=== PATIENT | male | born 2000 | race Caucasian/White ===

== ENCOUNTER 2020-10-19 17:27 | Emergency (ER) | payer OTHER, BC, SELFPAY ==
--- NOTE | ~2020-10-19 | XR_ITS ---
EXAMINATION: XR foot LT min 3V DATE: 10/19/2020 17:41 INDICATION: Left foot pain and bruising after being run over by a pallet calin TECHNIQUE: Dorsoplantar, two oblique and lateral views of the left foot were obtained. COMPARISON: None. FINDINGS: Bone alignment is normal. Linear lucency projecting across the tuft of the left fifth distal phalanx on the dorsal plantar and one of the oblique views but without definitive cortical continuity and thi s remains equivocal for small nondisplaced fracture. No other lesions suspicious for fracture. Joint spaces are normal. Soft tissues are unremarkable. IMPRESSION: 1. Linear lucency suspicious but not definitive for nondisplaced fracture at the tuft of the left fif th distal phalanx. Reviewed, dictated and finalized at location A. TE [employer]ITER IMPRESSION: 1. Linear lucency suspicious but not definitive for nondisplaced fracture at th e tuft of the left fifth distal phalanx.
--- NOTE | 2020-10-19 17:35 | ED.LOWEXIN ---
HPI - Extremity Injury (Lower) General Chief Complaint: Extremity Injury, Lower Stated Complaint: INJURED L TOE Time Seen by Provider: 10/19/20 17:36 Source: patient and RN notes reviewed Mode of arrival: ambulatory Limitations: no limitations History of Present Illness HPI Narrative: 20 year old male who presents to express care with complaints of pain to his left 5th toe since approximately 1999 last night when he accidently ran over his toe using a hand held pallet calin. Patient has swelling and discoloration to his left 5th toe with noted avulsion of skin on inner side of 5th left toe with no acute bleeding noted. Patient has strong left pedal pulse present, foot warm to touch with patient stating increase in pain with movement, palpation of toe, and weight bearing to his left foot MD complaint: foot injury Onset (ago): hour(s) (last night at work) Injury: Left: foot Type of Injury: other (rolled over foot with pallet calin at work last night) Place: work Severity scale (1-10): 5 Relieving factors: nothing Exacerbating factors: movement and palpation Context: direct blow Associated symptoms: able to partially bear weight Other symptoms: none Related Data Allergies Allergy/AdvReac Type Severity Reaction Status Date / Time No Known Allergies Allergy Unverified 05/30/14 19:55 Review of Systems Review of Systems: Narrative: CONSTITUTIONAL: Denies fever, chills, or sweats. EYES: Denies visual changes, redness, or discharge. ENT: Denies rhinorrhea, congestion, sore throat, or otalgia. CARDIOVASCULAR: Denies chest pain, palpitations, or edema. RESPIRATORY: Denies cough or dyspnea. GASTROINTESTINAL: Denies abdominal pain, nausea, vomiting, or diarrhea. GENITOURINARY: Denies dysuria or hematuria. SKIN: Denies rash or itching..25cm avulsion of skin on inner aspect of left 5th toe no active bleeding MUSCULOSKELETAL: Denies back pain,positive for pain to 5th left toe with swelling and discoloration, or myalgia. NEUROLOGIC: Denies headache, numbness, or weakness. PSYCHIATRIC: Denies anxiety or depression. All systems reviewed & are unremarkable except as noted in HPI and below PMFSH Past Medical History Medical History (Updated 10/21/20 @ 08:53 by Gisele Love NP) Depression Surgical History Surgical History (Updated 10/19/20 @ 17:39 by Gisele Love NP) H/O eye surgery Social History Social History (Updated 10/19/20 @ 17:39 by Gisele Love NP) Smoking status: Never smoker Alcohol intake: never Substance use: never Living arrangements: with family Gender identity (if verbalized by the patient): Male Comments At time of signature, agree with nursing past medical, surgical, social and family history. There is no relevant family history pertinent to the presenting complaint Exam Narrative: Exam Narrative: GENERAL: Well-appearing, well-nourished, and in no acute distress. HEAD: Normocephalic, atraumatic. EYES: PERRLA and EOMI. ENT: Nares clear, no rhinorrhea or epistaxis. Mucous membranes moist.TM's normal with good light reflex, throat pink with no lesions or exudates, no tonsil enlargement or redness. NECK: Supple.no lymphadenopathy CHEST: Clear to auscultation. No respiratory distress.SAO2 100% on room air HEART: Regular rate and rhythm. No murmur heard. Normal peripheral pulses. ABDOMEN: Soft, nontender, nondistended, normal active bowel sounds. EXTREMITIES: Normal range of motion. No edema with exception to left 5th toe which has some swelling bruising and pain, left foot has strong pedal and posterior tibial pulses, foot warm and pink, denies any tingling or numbness to his left foot or toes. SKIN: Warm, dry, no rash. 0.25 cm avulsion of skin to inner aspect of left 5th toe, bruising noted at nail bed of 5th left toe no subungual hematoma noted NEURO: No focal deficits. Alert and oriented x3. Course Vital Signs Vital signs: Vital Signs Temperature 36.5 C 10/19/20 17:42 Pulse Rate 63
[2020-10-19 17:42] VITALS: BP 129/82; PULSE 63; RESP 16; TEMP 36.5; O2SAT 100
== END 2020-10-19 18:10 | disposition home or self-care (01) ==
PROVIDERS: Emergency Provider Registered Nurse
DX: S90.122A Contusion of left lesser toe(s) without damage to nail, initial encounter (principal); X58.XXXA Exposure to other specified factors, initial encounter; S91.105A Unspecified open wound of left lesser toe(s) without damage to nail, initial encounter; S92.535A Nondisplaced fracture of distal phalanx of left lesser toe(s), initial encounter for closed fracture
CPT/HCPCS: 73630; 99203; G0463

== ENCOUNTER 2022-01-03 13:32 | Emergency (ER) | payer OTHER, SELFPAY ==
--- NOTE | 2022-01-03 13:41 | ED.URI ---
HPI - URI/Sore Throat General Chief Complaint: Upper Respiratory Infection Stated Complaint: congestion, runny nose, cough Time Seen by Provider: 01/03/22 13:41 Source: patient Mode of arrival: ambulatory Limitations: no limitations History of Present Illness HPI Narrative: Mr. Sen is a 21-year-old male patient presenting to the clinic today with complaints of cough, congestion, and runny nose X1 week. He reports is having green/yellow nasal discharge as well as sinus pressure. Has been getting sinus headaches from this. Feels as though the drainage is running down the back of his throat causing a little bit of a sore throat as well as a cough. He denies any fever or chills. He denies any known exposure to anyone with COVID, flu, or strep. MD elicited complaint: cough, rhinorrhea and nasal congestion Related Data Allergies Allergy/AdvReac Type Severity Reaction Status Date / Time No Known Allergies Allergy Verified 01/03/22 13:40 Review of Systems Review of Systems: Pertinent positives per HPI. Patient denies any fever, chills, rash, headache, visual changes, dizziness, shortness of breath, chest pain, palpitations, nausea, vomiting, diarrhea, constipation, abdominal pain, or any urinary issues. PMFSH Past Medical History Medical History Depression Surgical History Surgical History H/O eye surgery Social History Social History Smoking status: Never smoker Alcohol intake: never Substance use: never Gender identity (if verbalized by the patient): Male Comments At the time of my signature, I reviewed and agree with the nursing past medical, surgical, social, and family history. There is no relevant family history pertinent to the patient complaint. Exam Narrative: General: Well-developed, well nourished, in no apparent distress Head: Normocephalic, atraumatic Eyes: Pupils equally round and reactive to light bilaterally, EOM intact, sclera and conjunctive clear, no discharge, lids normal Ears: TMs intact and clear, ear canals ceruminous, no drainage, grossly hearing normal. Nose: Nares patent, green nasal discharge, moderate inflammation with white striae over the anterior and posterior nasal turbinates, sinus tenderness over the maxillary and frontal sinuses. Mouth: Oral pharynx without lesions or masses, good dentition, MMM. Oropharynx red, postnasal drip Neck: Supple, trachea midline, no enlargement of anterior or posterior cervical nodes, no thyroid masses or goiter palpable. Cardio: Regular rate and rhythm, s1 and s2 normal, no murmur appreciated. Resp: Clear to auscultation bilaterally, no rhonchi, rales, wheezing or rubs Course Course Emergency Course: Portions of this record may have been created with voice recognition software. Level of Care: Express Care Visit Vital Signs Vital signs: Vital signs reviewed MDM - URI/Sore Throat MDM Narrative Medical decision making narrative: At the time of arrival patient is resting comfortably on the exam table. He reports cough, nasal congestion, sinus headache, and runny nose x1 week. Has been taking [id number] Tylenol without relief. I suspect he has acute bacterial rhinosinusitis and will treat with a course of Augmentin. Supportive measures were discussed with patient he voiced understanding of discharge instructions. Differential Diagnosis Differential diagnosis: Likely upper respiratory infection, croup, otitis media, sinusitis, viral infection, bronchitis, influenza and pharyngitis Discharge Plan Discharge Clinical Impression: Acute bacterial rhinosinusitis Patient Disposition: Home, Self-Care Condition: Stable Instructions: Antibiotic Form, Rhinosinusitis (ED) Additional Instructions: Take prescription medications only as prescribed-Aug
[2022-01-03 13:42] VITALS: BP 126/77; PULSE 127; RESP 16; TEMP 36.6; O2SAT 100
== END 2022-01-03 13:55 | disposition home or self-care (01) ==
PROVIDERS: Emergency Provider Nurse Practitioner Family
DX: J01.90 Acute sinusitis, unspecified (principal)
CPT/HCPCS: 99213; G0463

== ENCOUNTER 2023-10-02 09:37 | Emergency (ER) | payer BC, SELFPAY ==
[2023-10-02 09:46] VITALS: BP 119/72; PULSE 106; RESP 16; TEMP 38.5; O2SAT 99
--- NOTE | 2023-10-02 10:22 | ED.URI ---
HPI - URI/Sore Throat General Chief Complaint: Upper Respiratory Infection Stated Complaint: RUNNY NOSE/HEADACHE/BODY ACHES/SORE THROAT Time Seen by Provider: 10/02/23 10:15 Source: patient and RN notes reviewed Mode of arrival: ambulatory Limitations: no limitations History of Present Illness HPI Narrative: Patient presents today complaining of headache, rhinorrhea, chills, sore throat, body aches, cough since yesterday. Currently rates his pain 5/10 and has been taking ibuprofen with mild relief. Denies known sick contacts. Related Data Home Medications Medication Instructions Recorded Confirmed No Home Medications 10/02/23 10/02/23 Allergies Allergy/AdvReac Type Severity Reaction Status Date / Time No Known Allergies Allergy Verified 10/02/23 09:56 Review of Systems Review of Systems: CONSTITUTIONAL: + body aches, chills EYES: Denies visual changes, redness, or discharge. ENT: Denies congestion, or otalgia.+ rhinorrhea, sore throat CARDIOVASCULAR: Denies chest pain, palpitations, or edema. RESPIRATORY: Denies dyspnea.+ cough GASTROINTESTINAL: Denies abdominal pain, nausea, vomiting, or diarrhea. GENITOURINARY: Denies dysuria or hematuria. SKIN: Denies rash, itching, or wounds. MUSCULOSKELETAL: Denies back pain, joint pain, or myalgia. NEUROLOGIC: Denies numbness, tingling, or weakness.+ headache PSYCH: Denies depression or anxiety. PMFSH Past Medical History Medical History Depression Surgical History Surgical History H/O eye surgery Social History Social History Smoking status: Never smoker Alcohol intake: never Substance use: never Living arrangements: with family Gender identity (if verbalized by the patient): Male Comments At time of signature, I have reviewed and agree with nursing past medical, surgical, social and family history unless otherwise noted. Please see nursing chart for further information. There is no relevant family history pertinent to the presenting complaint Exam Narrative: GENERAL: Well-appearing, well-nourished, and in no acute distress. HEAD: Normocephalic, atraumatic. EYES: EOMI. No redness or drainage. Conjunctivae normal. ENT: Mucous membranes pink and moist. Nares clear. +rhinorrhea. TMs normal bilaterally. Throat mildly erythematous without edema or exudate. Uvula midline. NECK: Normal AROM. Supple. No lymphadenopathy. CHEST: No respiratory distress. Clear to auscultation. HEART: Regular rate and rhythm. No murmur appreciated. EXTREMITIES: Normal range of motion. No edema. SKIN: Warm, dry, no rash. Capillary refill normal. Normal skin turgor. NEURO: No focal deficits. Alert and oriented x3. Gait steady. PSYCH: Normal affect. No signs of depression or anxiety. Course Course Level of Care: Express Care Visit Vital Signs Vital signs: Vital Signs Temperature 101.3 F H 10/02/23 09:46 Pulse Rate 106 H 10/02/23 09:46 Respiratory Rate 16 10/02/23 09:46 Blood Pressure 119/72 10/02/23 09:46 Pulse Oximetry 99 10/02/23 09:46 Temperature 101.3 F H 10/02/23 09:46 Pulse Rate 106 H 10/02/23 09:46 Respiratory Rate 16 10/02/23 09:46 Blood Pressure 119/72 10/02/23 09:46 Pulse Oximetry 99 10/02/23 09:46 Oxygen Delivery Room Air 10/02/23 09:54 Reviewed MDM - URI/Sore Throat MDM Narrative Medical decision making narrative: Testing negative. Strep culture pending. Symptoms likely viral in etiology. Discussed [id number] treatment duration of illness. No prescription medications indicated at this time. Anticipatory guidance given. Differential Diagnosis Differential diagnosis: Likely upper respiratory infection, viral infection, influenza, pharyngitis and other (Strep throat, COVID-19) Lab Data Attestation: I revi
== END 2023-10-02 10:32 | disposition home or self-care (01) ==
PROVIDERS: Emergency Provider Nurse Practitioner
DX: B34.9 Viral infection, unspecified (principal); Z20.822 Contact with and (suspected) exposure to COVID-19
CPT/HCPCS: 87081; 87426; 87804; 87880; 99213; G0463